=== PATIENT | female | born 1990 | race Caucasian/White ===

== ENCOUNTER 2017-06-23 23:31 | Emergency (ER) | payer OTHER ==
[2017-06-23] MEDS ORDERED: DiphenhydrAMINE 50 mg/ml Inj ONE (23:51)
[2017-06-23] MEDS ORDERED: DiphenhydrAMINE 50 mg/ml Inj IVP STA (23:58)
--- NOTE | 2017-06-24 00:49 | C.PDOC ---
History Of Present Illness 26 y/o female presents to the ED for evaluation of an allergic reaction which occurred earlier today. Patient states she ate some shellfish with "3 new vegatables" and developed generalized redness, itchiness and throat tightness around 2-3 hours after. Patient notes she has had shellfish in the past and remained asymptomatic. Patient denies tongue swelling, difficulty breathing and wheezing. Chief Complaint (Nursing): Allergic Reaction History Per: Patient History/Exam Limitations: no limitations Onset/Duration Of Symptoms: Hrs Current Symptoms Are (Timing): Still Present Context: Food Possible Cause: Food Associated Symptoms: Skin Rash, Itching Home/EMS Treatment: None Additional History Per: Patient Past Medical History Reviewed: Historical Data, Nursing Documentation, Vital Signs Vital Signs: Last Vital Signs Temp 98.3 F 06/24/17 01:19 Pulse 70 06/24/17 01:19 Resp 16 06/24/17 01:19 BP 124/82 06/24/17 01:19 Pulse Ox 97 06/24/17 02:00 - Medical History PMH: No Chronic Diseases Surgical History: No Surg Hx Family History: States: Unknown Family Hx - Social History Hx Alcohol Use: No Hx Substance Use: No - Immunization History Hx Tetanus Toxoid Vaccination: No Hx Influenza Vaccination: No Hx Pneumococcal Vaccination: No Review Of Systems Respiratory: Negative for: Wheezing Skin: Positive for: Other (allergic reaction ) Physical Exam - Physical Exam Appears: Non-toxic, No Acute Distress Skin: Warm, Dry, Rash (mild, residual macular erythema diffusely ) Head: Atraumatic, Normacephalic Eye(s): bilateral: Normal Inspection Oral Mucosa: Moist Tongue: Normal Appearing, No Swelling Lips: Normal Appearing, No Swelling Throat: Normal, No Erythema, No Exudate Neck: Supple Chest: Symmetrical, No Deformity, No Tenderness Cardiovascular: Rhythm Regular, No Murmur Respiratory: Normal Breath Sounds, No Rales, No Rhonchi, No Wheezing, Other ( speaking in complete sentences ) Extremity: Normal ROM, Capillary Refill (less than 2 seconds ) Neurological/Psych: Oriented x3, Normal Speech, Normal Cognition ED Course And Treatment O2 Sat by Pulse Oximetry: 97 (on RA) Pulse Ox Interpretation: Normal Medical Decision Making Medical Decision Making: Progress: Albuterol INH, Benadryl IVP, Pepcid IVP and Solu-Medrol IV administered. Disposition - Disposition Referrals: [facility] [Outside] Disposition: HOME/ ROUTINE Disposition Time: 03:11 Condition: GOOD Prescriptions: DiphenhydrAMINE [Benadryl] 25 mg PO TID PRN #15 cap PRN Reason: Itching / Pruritus Famotidine [Pepcid] 40 mg PO DAILY #5 tab predniSONE [predniSONE Tab] 20 mg PO DAILY #5 tab Instructions: Food Allergy Forms: [employer] (Chinese) Print Language: FRISIAN - Clinical Impression Clinical Impression: Food allergy - Scribe Statement The provider has reviewed the documentation as recorded by the Scribe (Coleen Bellamy) Provider Attestation: All medical record entries made by the Scribe were at my direction and personally dictated by me. I have reviewed the chart and agree that the record accurately reflects my personal performance of the history, physical exam, medical decision making, and the department course for this patient. I have also personally directed, reviewed, and agree with the discharge instructions and disposition.
[2017-06-24] MEDS ORDERED: Albuterol 0.083% Inhal Sol (2.5 mg/3 mL) UD INH STA (00:56)
[2017-06-24] MEDS ORDERED: Albuterol 0.083% Inhal Sol (2.5 mg/3 mL) UD ONE (01:20)
[2017-06-24 01:26] VITALS: BP 124/82; PULSE 70; RESP 16; TEMP 98.3
[2017-06-24 01:59] VITALS: O2SAT 97
== END 2017-06-24 02:02 | disposition home or self-care (01) ==
LOC: C.ER 23:31
DX: T78.1XXA Other adverse food reactions, not elsewhere classified, initial encounter (principal); X58.XXXA Exposure to other specified factors, initial encounter
CPT/HCPCS: 94640; 96374; 96375; 99284; J1200; J2930